=== PATIENT | female | born 1955 | race Caucasian/White ===

== ENCOUNTER 2016-10-12 18:16 | Emergency (ER) | payer SELFPAY ==
[2016-10-12 20:30] VITALS: BP 141/82
== END 2016-10-12 20:30 | disposition home or self-care (01) ==
LOC: ED 18:16
DX: S82.001A Unspecified fracture of right patella, initial encounter for closed fracture (principal); S60.212A Contusion of left wrist, initial encounter; S49.92XA Unspecified injury of left shoulder and upper arm, initial encounter; W17.89XA Other fall from one level to another, initial encounter; Y93.89 Activity, other specified; Y99.8 Other external cause status; Y92.89 Other specified places as the place of occurrence of the external cause
CPT/HCPCS: J1885; Q0092